=== PATIENT | female | born 1945 | race Native Hawaiian/Other Pacific Islander ===

== ENCOUNTER 2017-06-28 13:51 | Outpatient (CLI) | payer OTHER | END 2017-06-28 19:43 | disposition home or self-care (01) | LOC: MAMMO 13:51 | DX: Z12.31 Encounter for screening mammogram for malignant neoplasm of breast (principal) ==

== ENCOUNTER 2018-07-03 09:05 | Outpatient (CLI) | payer OTHER | END 2018-07-03 19:01 | disposition home or self-care (01) | LOC: MAMMO 09:05 | DX: Z12.31 Encounter for screening mammogram for malignant neoplasm of breast (principal) ==

== ENCOUNTER 2019-07-11 07:58 | Outpatient (CLI) | payer OTHER | END 2019-07-11 19:28 | disposition home or self-care (01) | LOC: MAMMO 07:58 | DX: Z12.31 Encounter for screening mammogram for malignant neoplasm of breast (principal) ==

== ENCOUNTER 2020-08-17 08:39 | Outpatient (CLI) | payer OTHER | END 2020-08-17 23:07 | disposition home or self-care (01) | LOC: MAMMO 08:39 | PROVIDERS: ATTEND Internal Medicine | DX: Z12.31 Encounter for screening mammogram for malignant neoplasm of breast (principal) ==

== ENCOUNTER 2020-08-25 15:25 | Outpatient (CLI) | payer OTHER | END 2020-08-25 22:08 | disposition home or self-care (01) | LOC: INF 15:25 | PROVIDERS: ATTEND Internal Medicine | DX: Z23 Encounter for immunization (principal) | CPT/HCPCS: 96372 ==

== ENCOUNTER 2020-09-28 13:33 | Outpatient (CLI) | payer OTHER, MEDICARE | END 2020-09-28 21:57 | disposition home or self-care (01) | LOC: INF 13:33 | PROVIDERS: ATTEND Internal Medicine | DX: Z23 Encounter for immunization (principal) | CPT/HCPCS: 96372 ==

== ENCOUNTER 2021-08-30 08:32 | Outpatient (CLI) | payer OTHER | END 2021-08-30 18:53 | disposition home or self-care (01) | LOC: MAMMO 08:32 | PROVIDERS: ATTEND Internal Medicine | DX: Z12.31 Encounter for screening mammogram for malignant neoplasm of breast (principal) ==

== ENCOUNTER 2022-03-01 09:21 | Outpatient (CLI) | payer OTHER | END 2022-03-01 19:35 | disposition home or self-care (01) | LOC: RESP 09:21 | PROVIDERS: ATTEND Obstetrics & Gynecology Female Pelvic Medicine and Reconstructive Surgery | DX: Z01.818 Encounter for other preprocedural examination (principal) | CPT/HCPCS: 93005 ==

== ENCOUNTER 2022-03-21 09:02 | Outpatient (CLI) | payer OTHER | END 2022-03-21 19:27 | disposition home or self-care (01) | LOC: LABW 09:02 | PROVIDERS: ATTEND Obstetrics & Gynecology Female Pelvic Medicine and Reconstructive Surgery | DX: R79.89 Other specified abnormal findings of blood chemistry (principal) | CPT/HCPCS: 36415; 82565 ==

== ENCOUNTER 2022-12-12 12:40 | Outpatient (CLI) | payer OTHER | END 2022-12-12 18:58 | disposition home or self-care (01) | LOC: US 12:40 | PROVIDERS: ATTEND Internal Medicine | DX: R42 Dizziness and giddiness (principal); R41.3 Other amnesia; R53.83 Other fatigue ==